=== PATIENT | female | born 1990 | race Caucasian/White ===

== ENCOUNTER 2016-07-23 16:00 | Emergency (ER) | payer OTHER ==
[2016-07-23 16:28] VITALS: BP 112/58; PULSE 79; RESP 20; TEMP 98.3
--- NOTE | 2016-07-23 16:42 | ED ---
General Adult HPI - General Chief complaint: Upper Respiratory Infection Stated complaint: SOB/Cough Time Seen by Provider: 07/23/16 16:32 Source: patient, RN notes reviewed Mode of arrival: ambulatory Limitations: no limitations - History of Present Illness Initial comments: This is a 26-year-old female presents with a cough 3-4 days. Patient states she's had an intermittent cough on and off for a month but the cough has been more persistent over the last few days. Patient states the cough is dry. Patient also admits to rhinorrhea and a headache. Patient denies any otalgia or sore throat. Patient denies any shortness breath, nausea/vomiting/diarrhea or abdominal pain. Patient denies any chance of being . Patient denies any recent fever, chills, chest pain, back pain, numbness, tingling, hematuria , or visual changes, or any other complaints. - Related Data Previous Rx's Medication Instructions Recorded Acetaminophen-Codeine 300-30mg 1 each PO Q6H PRN #20 tablet 07/02/14 [Tylenol #3] Penicillin V Potassium [Pen Vee K] 500 mg PO QID 10 Days 07/02/14 Azithromycin [Zithromax Z-pack] 250 mg PO DIRECTED #6 tab 07/23/16 Benzonatate [Tessalon Perles] 100 mg PO TID 3 Days 07/23/16 Allergies Allergy/AdvReac Type Severity Reaction Status Date / Time No Known Allergies Allergy Verified 07/23/16 16:29 Review of Systems ROS Statement: Those systems with pertinent positive or pertinent negative responses have been documented in the HPI. ROS Other: All systems not noted in ROS Statement are negative. Past Medical History Past Medical History: No Reported History History of Any Multi-Drug Resistant Organisms: None Reported Additional Past Surgical History / Comment(s): fatty tumor removed from back Past Psychological History: No Psychological Hx Reported Smoking Status: Current every day smoker Past Alcohol Use History: None Reported Past Drug Use History: None Reported General Exam - General Exam Comments Initial Comments: General: The patient is awake and alert, in no distress, and does not appear acutely ill. Eye: Pupils are equal, round and reactive to light, extra-ocular movements are intact. No nystagmus. There is normal conjunctiva bilaterally. No signs of icterus. Ears: TMs pink and pearly with intact cone of light bilaterally. Normal external ear canals Nose: Clear runny mucus bilaterally. Nasal turbinates pink and moist Mouth and throat: There are moist mucous membranes and no oral lesions. Neck: The neck is supple, there is no tenderness or JVD. Cardiovascular: There is a regular rate and rhythm. No murmur, rub or gallop is appreciated. Respiratory: Dry cough present on exam. Lungs are clear to auscultation, respirations are non-labored, breath sounds are equal. No wheezes, stridor, rales, or rhonchi. Musculoskeletal: Normal ROM, no tenderness. Strength 5/5. Sensation intact. Radial pulses equal bilaterally 2+. Neurological: A&O x 3. CN II-XII intact, There are no obvious motor or sensory deficits. Coordination appears grossly intact. Speech is normal. Skin: Skin is warm and dry and no rashes or lesions are noted. Psychiatric: Cooperative, appropriate mood & affect, normal judgment. Limitations: no limitations Course Vital Signs 07/23/16 16:26 Temperature 98.3 F Pulse Rate 79 Respiratory 20 Rate Blood Pressure 112/58 O2 Sat by Pulse 97 Oximetry Medical Decision Making - Medical Decision Making This is a 26-year-old female with a cough 3-4 days. On physical exam patient is afebrile in the EC. Dry cough present on exam. Lungs are clear to auscultation bilaterally. Patient is 97% on room air and respiratory rate is 20. Chest x-ray is done and reviewed showing: New suspicious right perihilar infiltrate. Report reviewed by Dr. Sharif. I discussed the results with patient. I discussed that patient will be started on azithromycin for pneumonia. I discussed Tessalon Perles to help the painful cough. Discussed Tylenol and Motrin for any pain and fever symptoms. I discussed return parameters. Discussed that the patient should drink plenty of fluids. Discussed that patient should follow up with PCP in one to 2 days or return to the EC for any worsening symptoms or for any further concerns. Patient was receptive to this plan and patient will be discharged home. Disposition Clinical Impression: Pneumonia Disposition: HOME SELF-CARE Condition: Good Instructions: Community Acquired Pneumonia (ED) Additional Instructions: Please finish entire course of azithromycin. Please use Tylenol and Motrin for any pain or fever symptoms. Please use Tessalon Perles as needed for cough. Please follow-up with your primary care physician tomorrow or return to the EC for any worsening symptoms or for any further concerns. Prescriptions: Azithromycin [Zithromax Z-pack] 250 mg PO DIRECTED #6 tab Benzonatate [Tessalon Perles] 100 mg PO TID 3 Days Referrals: Sahil Martinez MD [Primary Care Provider] - 1-2 days Time of Disposition: 17:36
--- NOTE | 2016-07-23 17:18 | XR ---
EXAMINATION TYPE: XR chest 2V DATE OF EXAM: 07/23/2016 4:53 PM COMPARISON: Prior chest x-ray November 21, 2013 HISTORY: Shortness of breath and cough for 3 days. TECHNIQUE: Frontal and lateral views of the chest are obtained. FINDINGS: There is new right perihilar airspace opacity. Left lung is clear. No pleural effusion or pneumothorax seen bilaterally. The cardiac silhouette size is within normal limits. The osseous st ructures are intact. IMPRESSION: New suspicious right perihilar infiltrate.
== END 2016-07-23 17:52 | disposition home or self-care (01) ==
LOC: EC 16:00
DX: J18.9 Pneumonia, unspecified organism (principal); F17.200 Nicotine dependence, unspecified, uncomplicated
CPT/HCPCS: 71020; 99283

== ENCOUNTER 2018-02-21 12:33 | Emergency (ER) | payer OTHER ==
[2018-02-21 12:40] VITALS: RESP 18
[2018-02-21] MEDS ORDERED: SODIUM CHLORIDE 0.9% 1,000 ML IV STA (12:48)
[2018-02-21 13:16] LABS: Basophils % (A) 1 %; Eosinophils # (A) 0.2 k/uL (0-0.7); Eosinophils % (A) 2 %; HCT 41.2 % (34.0-46.0); HGB 14.1 gm/dL (11.4-16.0); Lymphocytes # (A) 2.1 k/uL (1.0-4.8); Lymphocytes % (A) 30 %; MCH 30.1 pg (25.0-35.0); MCHC 34.2 g/dL (31.0-37.0); MCV 88.1 fL (80.0-100.0); Mean Platelet Volume 7.8; Monocytes # (A) 0.3 k/uL (0-1.0); Monocytes % (A) 5 %; Neutrophils # (A) 4.4 k/uL (1.3-7.7); Neutrophils % (A) 62 %; Platelet Count 171 k/uL (150-450); RBC 4.67 m/uL (3.80-5.40); RDW 12.7 % (11.5-15.5); WBC 7.1 k/uL (3.8-10.6)
--- NOTE | 2018-02-21 13:25 | ED ---
Chest Pain HPI - General Chief Complaint: Chest Pain Stated Complaint: lt arm numbness, chest pain Time Seen by Provider: 02/21/18 12:46 Source: patient, RN notes reviewed, old records reviewed Mode of arrival: wheelchair Limitations: no limitations - History of Present Illness Initial Comments: This is a 27-year-old female the ER for evaluation. She presents today for evaluation of chest pain chest pain left upper extremity tingling. Patient states she has history of heart block, occasional chest pain 2 weeks of chest pain to excessive paresthesias occurring for further evaluation today. No modifying factors for symptoms. No recent travel history sick contacts, no headache or trauma. No recent nausea vomiting or diarrhea, denies . No modifying factors for symptoms. MD Complaint: chest pain -: week(s) (2) Onset: during rest, during exertion, after eating Pain Location: left chest Pain Radiation: LUE Severity: mild Severity scale (1-10): 2 (Currently no pain) Quality: aching, other (Tingling) Consistency: intermittent, now resolved Improves With: nothing Worsens With: nothing Treatments Prior to Arrival: none - Related Data Home Medications Medication Instructions Recorded Confirmed Aspirin EC [Ecotrin Low Dose] 81 mg PO DAILY 02/21/18 02/21/18 Allergies Allergy/AdvReac Type Severity Reaction Status Date / Time No Known Allergies Allergy Verified 02/21/18 13:07 Review of Systems ROS Statement: Those systems with pertinent positive or pertinent negative responses have been documented in the HPI. ROS Other: All systems not noted in ROS Statement are negative. EKG Findings - EKG Comments: EKG Findings:: EKG shows sinus rhythm rate of 66, TN 102, QRS 98, QTc 425 Past Medical History Past Medical History: No Reported History Additional Past Medical History / Comment(s): heart block History of Any Multi-Drug Resistant Organisms: None Reported Additional Past Surgical History / Comment(s): fatty tumor removed from back Past Psychological History: No Psychological Hx Reported Smoking Status: Current every day smoker Past Alcohol Use History: None Reported Past Drug Use History: None Reported General Exam - General Exam Comments Initial Comments: NIH of 0 Limitations: no limitations General appearance: alert, in no apparent distress Head exam: Present: atraumatic, normocephalic, normal inspection Eye exam: Present: normal appearance, PERRL, EOMI. Absent: scleral icterus, conjunctival injection, periorbital swelling ENT exam: Present: normal exam, mucous membranes moist Neck exam: Present: normal inspection. Absent: tenderness, meningismus, lymphadenopathy Respiratory exam: Present: normal lung sounds bilaterally. Absent: respiratory distress, wheezes, rales, rhonchi, stridor Cardiovascular Exam: Present: regular rate, normal rhythm, normal heart sounds. Absent: systolic murmur, diastolic murmur, rubs, gallop, clicks GI/Abdominal exam: Present: soft, normal bowel sounds. Absent: distended, tenderness, guarding, rebound, rigid Extremities exam: Present: normal inspection, full ROM, normal capillary refill. Absent: tenderness, pedal edema, joint swelling, calf tenderness Back exam: Present: normal inspection Neurological exam: Present: alert, oriented X3, CN II-XII intact Psychiatric exam: Present: normal affect, normal mood Skin exam: Present: warm, dry, intact, normal color. Absent: rash Course Vital Signs 02/21/18 12:38 Temperature 98.3 F Pulse Rate 79 Respiratory 18 Rate Blood Pressure 118/78 O2 Sat by Pulse 100 Oximetry - Reevaluation(s) Reevaluation #1: 02/21/18 13:58 Medical record is reviewed Reevaluation #2: 02/21/18 13:58 Patient reexamined, chest pain is nonexistent currently. No neurological deficit found Reevaluation #3: 02/21/18 15:58 Studies CTA chest negative for acute disease Chest Pain MDM - MDM 27 female with nonspecific chest pain paresthesias. Patient can be discharged home with normal CT labwork Disposition Clinical Impression: Chest pain Disposition: HOME SELF-CARE Condition: Good Instructions: Chest Pain (ED) Is patient prescribed a controlled substance at d/c from ED?: No Referrals: Sahil Martinez MD [Primary Care Provider] - 1-2 days
[2018-02-21 13:28] LABS: ALT 25 U/L (9-52); AST 23 U/L (14-36); Albumin 4.3 g/dL (3.5-5.0); Alkaline Phosphatase 41 U/L (38-126); Anion Gap 6 mmol/L; Blood Urea Nitrogen 15 mg/dL (7-17); Calcium 9.1 mg/dL (8.4-10.2); Carbon Dioxide 26 mmol/L (22-30); Chloride 106 mmol/L (98-107); Glucose 85 mg/dL (74-99); Lipase 32 U/L (23-300); Potassium 3.9 mmol/L (3.5-5.1); Sodium 138 mmol/L (137-145); Total Bilirubin 0.6 mg/dL (0.2-1.3); Total Protein 7.2 g/dL (6.3-8.2)
[2018-02-21 13:31] LABS: D-Dimer 0.41 mg/L FEU (<0.60); Partial Thromboplastin Time 25.8 sec (22.0-30.0); Prothrombin Time 10.1 sec (9.0-12.0)
[2018-02-21 13:51] LABS: Creatine Kinase 85 U/L (30-135)
[2018-02-21 14:04] LABS: Creatine Kinase MB 0.9 ng/mL (0.0-2.4); Troponin I <0.012 ng/mL (0.000-0.034)
--- NOTE | 2018-02-21 15:25 | CT ---
EXAMINATION TYPE: CT angio chest DATE OF EXAM: 02/21/2018 COMPARISON: 01/07/2010 HISTORY: Shortness of breath and Arm pain CT DLP: 216 mGycm. Automated Exposure Control for Dose Reduction was Utilized. CONTRAST: CTA scan of the thorax is performed with IV Contrast, patient injected with 100 mL of Isovue 370, pul monary embolism protocol. MIP Images are created on CT scanner and reviewed. FINDINGS: LUNGS: The lungs are grossly clear, there is no concerning parenchymal mass or nodule identified. T here is no pleural effusion or pneumothorax seen. The tracheobronchial tree is patent. MEDIASTINUM: There is satisfactory enhancement of the pulmonary artery and its branches, there is no CT evidence for pulmonary embolism. There are no greater than 1 cm hilar or mediastinal lymph nodes. No cardiomegaly or pericardial effusion is seen. OTHER: Triangular-shaped probable residual thymic tissue seen within the superior mediastinum. Ill-de fined soft tissue density is also present within the aorticopulmonary window and right hilum likely r elated to prominent lymph nodes. IMPRESSION: 1. No evidence of pulmonary embolism. 2. No acute pulmonary pathology. No focal consolidation, pleural effusion or pneumothorax. 3. Prominent mediastinal lymph nodes in the aorticopulmonary window and right hilum. Short-term follo w-up could ensure stability.
[2018-02-21 16:14] VITALS: BP 120/82; PULSE 74; TEMP 97.8
== END 2018-02-21 16:24 | disposition home or self-care (01) ==
LOC: EC 12:33
DX: R07.9 Chest pain, unspecified (principal); R20.2 Paresthesia of skin; F17.200 Nicotine dependence, unspecified, uncomplicated; Z86.79 Personal history of other diseases of the circulatory system; Z79.82 Long term (current) use of aspirin
CPT/HCPCS: 36415; 93005; 85379; 83880; 80053; 82550; 82553; 83690; 83735; 84484; 85025; 85610; 85730; 81025; 71275; 99285; Q9967

== ENCOUNTER → 2018-03-01 | Outpatient (CLI) | payer OTHER ==
--- NOTE | 2018-03-02 16:53 | ECHOS ---
STRESS ECHOCARDIOGRAM INDICATIONS: Chest pain. MEDICATIONS: Aspirin. BASELINE HEART RATE: 60 BASELINE BLOOD PRESSURE: 142/68 MAXIMUM HEART RATE: 172 MAXIMUM BLOOD PRESSURE: 162/67 85% MPHR: 165 100% MPHR: 194 METS: 11.7 MAXIMUM STAGE REACHED: 4 TOTAL EXERCISE TIME: 10:00 CLINICAL INFORMATION: Baseline 12-lead ECG shows normal sinus rhythm with normal cardiac intervals. Patient exercised on a Jovanni protocol for 10 minutes, achieving a peak heart rate of 172 beats per minute. There was no ECG evidence for ischemia. No arrhythmias were noted. Normal blood pressure response to exercise. Baseline 2D echo images showed normal LV size and systolic function without segmental wall motion abnormalities. At peak exercise, there was excellent augmentation of overall LV contractility without development of any wall motion abnormalities. At recovery, regional and global LV systolic function remained normal. IMPRESSION: No ECG or echocardiographic evidence for ischemia. MMODL / IJN: [id number] /
== END ==
LOC: RADNMMAIN 08:25
PROVIDERS: ATTEND Internal Medicine
DX: R00.2 Palpitations (principal)
CPT/HCPCS: 93351

== ENCOUNTER 2018-11-28 08:56 | Emergency (ER) | payer OTHER ==
[2018-11-28] MEDS ORDERED: SODIUM CHLORIDE 0.9% 1,000 ML IV STA (09:19)
[2018-11-28] MEDS ORDERED: METOCLOPRAMIDE 5 MG/ML 2 ML VIAL IVP STA (09:19)
[2018-11-28] MEDS ORDERED: LORazepam 1 MG TAB PO STA (09:19)
--- NOTE | 2018-11-28 09:22 | ED ---
Chest Pain HPI - General Chief Complaint: Chest Pain Stated Complaint: Chest pain, nausea Time Seen by Provider: 11/28/18 09:01 Source: patient, RN notes reviewed, old records reviewed Mode of arrival: ambulatory Limitations: no limitations - History of Present Illness Initial Comments: This Patient was 28-year-old female who presents emergency department today with 3 days of intermittent palpitation-like symptoms and complains of nausea. Patient reports that she was seen yesterday at [facility]. She was discharged with a diagnosis of dehydration after fluids and otherwise felt well. She reports that she started having symptoms again today. She does question if it could be related to anxiety. She is on a patch for contr ol, former smoker. Patient states that she does occasionally smoke marijuana to help with anxiety. Patient states that she has some nausea but no vomiting or significant abdominal pain. She denies any significant shortness of breath or coughing or upper respiratory symptoms. - Related Data Home Medications Medication Instructions Recorded Confirmed Aspirin EC [Ecotrin Low Dose] 81 mg PO DAILY 02/21/18 02/21/18 Allergies Allergy/AdvReac Type Severity Reaction Status Date / Time No Known Allergies Allergy Verified 11/28/18 09:00 Review of Systems ROS Statement: Those systems with pertinent positive or pertinent negative responses have been documented in the HPI. ROS Other: All systems not noted in ROS Statement are negative. EKG Findings - EKG Comments: EKG Findings:: EKG performed at 950 shows sinus rhythm with sinus arrhythmia with short MO. Otherwise normal EKG. Ventricular rate of 61 bpm. MO interval 104 ms. QS duration is 100 ms. QT QTc is 416/418 ms. Past Medical History Past Medical History: No Reported History Additional Past Medical History / Comment(s): heart block History of Any Multi-Drug Resistant Organisms: None Reported Additional Past Surgical History / Comment(s): fatty tumor removed from back Past Psychological History: No Psychological Hx Reported Smoking Status: Current every day smoker Past Alcohol Use History: None Reported Past Drug Use History: None Reported General Exam - General Exam Comments Initial Comments: This is a 28-year-old female. Patient appears somewhat anxious. Limitations: no limitations General appearance: alert, in no apparent distress Head exam: Present: atraumatic, normocephalic, normal inspection Eye exam: Present: normal appearance, PERRL, EOMI. Absent: scleral icterus, conjunctival injection, periorbital swelling ENT exam: Present: normal exam, normal oropharynx Neck exam: Present: normal inspection. Absent: tenderness, meningismus, lymphadenopathy Respiratory exam: Present: normal lung sounds bilaterally. Absent: respiratory distress, wheezes, rales, rhonchi, stridor Cardiovascular Exam: Present: regular rate, normal rhythm, normal heart sounds. Absent: systolic murmur, diastolic murmur, rubs, gallop, clicks GI/Abdominal exam: Present: soft, normal bowel sounds. Absent: distended, tende rness, guarding, rebound, rigid Course Vital Signs 11/28/18 11/28/18 11/28/18 08:57 09:09 10:09 Temperature 98.2 F Pulse Rate 79 78 Respiratory 22 22 16 Rate Blood Pressure 138/79 126/85 O2 Sat by Pulse 100 100 Oximetry Chest Pain MDM - MDM 28-year-old female presents emergency Department today with complaints of palpitations, nausea. She appears anxious on exam. Cardiac enzymes and an EKG are unremarkable. Patient's lab work was otherwise unremarkable. She is po sitive for marijuana she does report she smokes is due to anxiety. On reevaluation after receiving Ativan arrival when she does so much better. Discussed since likely related to anxiety. [facility] and also lab work and ER visit was reviewed as well shows no acute changes. Patient will be discharged at this time with follow-up with PCP. Also discussed following up with her dietary clerk. Disposition Clinical Impression: Anxiety, History of palpitations Disposition: HOME SELF-CARE Condition: Good Instructions (If sedation given, give patient instructions): Generalized Anxiety Disorder (ED), Heart Palpitations (ED) Additional Instructions: Patient advised to drink plenty of fluids. Have close follow up with your primary care physician and cardiology. Return to the emergency department if any alarming signs or symptoms occur. Is patient prescribed a controlled substance at d/c from ED?: No Referrals: Sahil Martinez MD [Primary Care Provider] - 1-2 days
[2018-11-28 09:52] LABS: Basophils % (A) 0 %; Eosinophils # (A) 0.1 k/uL (0-0.7); Eosinophils % (A) 2 %; HCT 43.5 % (34.0-46.0); HGB 14.9 gm/dL (11.4-16.0); Lymphocytes # (A) 1.2 k/uL (1.0-4.8); Lymphocytes % (A) 23 %; MCH 29.6 pg (25.0-35.0); MCHC 34.2 g/dL (31.0-37.0); MCV 86.5 fL (80.0-100.0); Mean Platelet Volume 7.4; Monocytes # (A) 0.2 k/uL (0-1.0); Monocytes % (A) 4 %; Neutrophils # (A) 3.7 k/uL (1.3-7.7); Neutrophils % (A) 69 %; Platelet Count 167 k/uL (150-450); RBC 5.03 m/uL (3.80-5.40); RDW 12.8 % (11.5-15.5); WBC 5.3 k/uL (3.8-10.6)
[2018-11-28 10:02] LABS: ALT 12 U/L (9-52); AST 19 U/L (14-36); African American GFR (CKD) >90 (>60 ml/min/1.73 sqM); Albumin 4.4 g/dL (3.5-5.0); Alkaline Phosphatase 46 U/L (38-126); Anion Gap 11 mmol/L; Blood Urea Nitrogen 8 mg/dL (7-17); Calcium 9.5 mg/dL (8.4-10.2); Carbon Dioxide 20 mmol/L (22-30); Chloride 112 mmol/L (98-107); Glucose 119 mg/dL (74-99); Sodium 143 mmol/L (137-145); Total Bilirubin 0.5 mg/dL (0.2-1.3); Total Protein 7.2 g/dL (6.3-8.2)
--- NOTE | 2018-11-28 10:06 | XR ---
EXAMINATION TYPE: XR chest 2V DATE OF EXAM: 11/28/2018 COMPARISON: 07/23/2016 HISTORY: Palpitations with history of heart block TECHNIQUE: Frontal and lateral views of the chest are obtained. FINDINGS: There is no focal air space opacity, pleural effusion, or pneumothorax seen. The cardiac silhouette size is within normal limits. The osseous structures are intact. IMPRESSION: No acute cardiopulmonary process.
[2018-11-28 10:10] LABS: INR 0.9 (<1.2)
[2018-11-28 10:11] VITALS: RESP 16
[2018-11-28 10:17] LABS: Appearance,Urine Clear (Clear); Bilirubin,Urine Negative (Negative); Blood,Urine Negative (Negative); Color,Urine Colorless; Glucose,Urine (UA) Negative (Negative); Ketones,Urine Negative (Negative); Leukocyte Esterase,Urine Negative (Negative); Nitrite,Urine Negative (Negative); Protein,Urine Negative (Negative); Specific Gravity,Urine 1.002 (1.001-1.035); Urobilinogen,Urine <2.0 mg/dL (<2.0)
[2018-11-28 10:28] LABS: Amphetamine Screen,Urine Not Detected (NotDetected); Barbiturate Screen,Urine Not Detected (NotDetected); Benzodiazepines Screen,Urine Not Detected (NotDetected); Cocaine Screen,Urine Not Detected (NotDetected); Methadone Screen, Urine Not Detected (NotDetected); Opiate Screen,Urine Not Detected (NotDetected); Oxycodone Screen, Urine Not Detected (NotDetected); Phencyclidine Screen,Urine Not Detected (NotDetected); Tricyclic Antidepressant,Urine Not Detected (NotDetected); Urn Cannabinoid Scrn Detected (NotDetected)
[2018-11-28 11:27] VITALS: BP 110/62; PULSE 62; TEMP 97.9
== END 2018-11-28 11:25 | disposition home or self-care (01) ==
LOC: EC 08:56
DX: F41.9 Anxiety disorder, unspecified (principal); R00.2 Palpitations; R11.0 Nausea; R07.9 Chest pain, unspecified; F12.90 Cannabis use, unspecified, uncomplicated; F17.200 Nicotine dependence, unspecified, uncomplicated; Z79.82 Long term (current) use of aspirin
CPT/HCPCS: 36415; 93005; 80053; 83735; 84484; 85025; 85610; 85730; 81003; 81025; 80306; 71046; 99285; 96374; 96361; J2765

== ENCOUNTER 2019-01-19 09:35 | Emergency (ER) | payer OTHER ==
[2019-01-19 09:42] VITALS: RESP 18; TEMP 98.1
[2019-01-19] MEDS ORDERED: Rhogam IMMUNE GLOBULIN 1,500 UNIT/1 ML IM ONE (10:13)
--- NOTE | 2019-01-19 10:20 | ED ---
Female Urogenital HPI - General Chief complaint: Vaginal Bleeding Stated complaint: preg, bleeding Time Seen by Provider: 01/19/19 09:43 Source: patient Mode of arrival: wheelchair Limitations: no limitations - History of Present Illness Initial comments: Patient is a 28-year-old female G3 Patient female, who presents for in terms today with vaginal bleeding starting today. She reports that she found she was on Sunday. Started to have some lower abdominal pain and cramping yesterday on Sunday. She reports pain is on LLQ. She states that her CORD SPLICER is Dr. corrales. Patient reports that she's had no fevers or chills, nausea or vomiting. She states that the bleeding has been more heavy over the past few hours. She reports she came here from work. States that she does have a negative blood type and received RhoGAM on her last . - Related Data Home Medications Medication Instructions Recorded Confirmed Aspirin EC [Ecotrin Low Dose] 81 mg PO DAILY 02/21/18 02/21/18 Allergies Allergy/AdvReac Type Severity Reaction Status Date / Time No Known Allergies Allergy Verified 01/19/19 09:40 Review of Systems ROS Statement: Those systems with pertinent positive or pertinent negative responses have been documented in the HPI. ROS Other: All systems not noted in ROS Statement are negative. Past Medical History Past Medical History: No Reported History Additional Past Medical History / Comment(s): heart block History of Any Multi-Drug Resistant Organisms: None Reported Additional Past Surgical History / Comment(s): fatty tumor removed from back Past Psychological History: No Psychological Hx Reported Smoking Status: Current every day smoker Past Alcohol Use History: None Reported Past Drug Use History: None Reported General Exam - General Exam Comments Initial Comments: 28-year-old female. Alert and oriented. No significant distress. Limitations: no limitations General appearance: alert, in no apparent distress Head exam: Present: atraumatic, normocephalic, normal inspection Eye exam: Present: normal appearance, PERRL, EOMI. Absent: scleral icterus, conjunctival injection, periorbital swelling ENT exam: Present: normal exam, mucous membranes moist Neck exam: Present: normal inspection. Absent: tenderness, meningismus, lymphadenopathy Respiratory exam: Present: normal lung sounds bilaterally. Absent: respiratory distress, rales, rhonchi, stridor Cardiovascular Exam: Present: regular rate, normal rhythm, normal heart sounds. Absent: systolic murmur, diastolic murmur, rubs, gallop, clicks GI/Abdominal exam: Present: soft, normal bowel sounds. Absent: distended, tenderness, guarding, rebound, rigid External exam: Present: normal external exam Speculum exam: Present: vaginal bleeding (Cervical os appeared closed, there is evidence of bright red blood in vaginal vault. No significant clotting noted.). Absent: normal speculum exam By manual exam: Present: adnexal tenderness (Patient had left adnexal tenderness.). Absent: normal by manual exam, cervical motion tenderness Extremities exam: Present: normal inspection, full ROM, normal capillary refill. Absent: tenderness, pedal edema, joint swelling, calf tenderness Back exam: Present: normal inspection Neurological exam: Present: alert, oriented X3, CN II-XII intact Psychiatric exam: Present: normal affect, normal mood Skin exam: Present: warm, dry, intact, normal color. Absent: rash Course Vital Signs 01/19/19 01/19/19 09:40 12:53 Temperature 98.1 F Pulse Rate 62 75 Respiratory 18 18 Rate Blood Pressure 125/85 113/75 O2 Sat by Pulse 100 98 Oximetry - Reevaluation(s) Reevaluation #1: 01/19/19 13:[address] Desai who recommends the Patient follow up tomorrow morning at [address] Corrales. Medical Decision Making - Medical Decision Making 28 year old female presents with LLQ pain and vaginal bleeding. She recently found out that she is , and has bleeding for one day. She has left adnexal tenderness on exam. HCG is 301. US cannot exclude ectopic , but no identifiable IUP. Rh is negatieve and she was given Rhogam. Patient was informed this could be early ectopic , and discussed case with Dr. Joel. He suggests patient have appt with Dr. Corrales at 9am tomorrow. Patient is agreeable to this treatment plan.Discussed strict return parameters. - Lab Data Result diagrams: 01/19/19 11:10 01/19/19 11:10 Lab Results 01/19/19 01/19/19 01/19/19 Range/Units 10:00 10:15 11:10 WBC (3.8-10.6) k/uL RBC (3.80-5.40) m/uL Hgb (11.4-16.0) gm/dL Hct (34.0-46.0) % MCV (80.0-100.0) fL MCH (25.0-35.0) pg MCHC (31.0-37.0) g/dL RDW (11.5-15.5) % Plt Count (150-450) k/uL Neutrophils % % Lymphocytes % % Monocytes % % Eosinophils % % Basophils % % Neutrophils # (1.3-7.7) k/uL Lymphocytes # (1.0-4.8) k/uL Monocytes # (0-1.0) k/uL Eosinophils # (0-0.7) k/uL Basophils # (0-0.2) k/uL PT (9.0-12.0) sec INR (<1.2) APTT (22.0-30.0) sec Sodium (137-145) mmol/L Potassium (3.5-5.1) mmol/L Chloride (98-107) mmol/L Carbon Dioxide (22-30) mmol/L Anion Gap mmol/L BUN (7-17) mg/dL Creatinine (0.52-1.04) mg/dL Est GFR (CKD-EPI)AfAm (>60 ml/min/1.73 sqM) Est GFR (CKD-EPI)NonAf (>60 ml/min/1.73 sqM) Glucose (74-99) mg/dL Calcium (8.4-10.2) mg/dL HCG, Quant mIU/mL Urine Color Light Red Urine Appearance Cloudy H (Clear) Urine pH 7.0 (5.0-8.0) Ur Specific [place] 1.017 (1.001-1.035) Urine Protein 1+ H (Negative) Urine Glucose (UA) Negative (Negative) Urine Ketones Negative (Negative) Urine Blood Large H (Negative) Urine Nitrite Negative (Negative) Urine Bilirubin Negative (Negative) Urine Urobilinogen <2.0 (<2.0) mg/dL Ur Leukocyte Esterase Moderate H (Negative) Urine RBC 23 H (0-5) /hpf Urine WBC 12 H (0-5) /hpf Ur Squamous Epith Cells 11 H (0-4) /hpf Amorphous Sediment Rare H (None) /hpf Urine Bacteria Rare H (None) /hpf Urine Mucus Rare H (None) /hpf Trichomonas Ag (Rapid) Negative (Negative) Blood Type O Negative Blood Type Recheck O Neg Bld Type Recheck Status No Antibody Screen NEGATIVE Spec Expiration Date 01/22/2019 - 230901/19/19 01/19/19 01/19/19 Range/Units 11:10 11:10 11:10 WBC 8.8 (3.8-10.6) k/uL RBC 4.74 (3.80-5.40) m/uL Hgb 14.3 (11.4-16.0) gm/dL Hct 41.8 (34.0-46.0) % MCV 88.3 (80.0-100.0) fL MCH 30.2 (25.0-35.0) pg MCHC 34.2 (31.0-37.0) g/dL RDW 13.9 (11.5-15.5) % Plt Count 148 L (150-450) k/uL Neutrophils % 77 % Lymphocytes % 15 % Monocytes % 3 % Eosinophils % 3 % Basophils % 1 % Neutrophils # 6.8 (1.3-7.7) k/uL Lymphocytes # 1.3 (1.0-4.8) k/uL Monocytes # 0.3 (0-1.0) k/uL Eosinophils # 0.2 (0-0.7) k/uL Basophils # 0.1 (0-0.2) k/uL PT 10.3 (9.0-12.0) sec INR 1.0 (<1.2) APTT 27.0 (22.0-30.0) sec Sodium 139 (137-145) mmol/L Potassium 4.0 (3.5-5.1) mmol/L Chloride 110 H (98-107) mmol/L Carbon Dioxide 22 (22-30) mmol/L Anion Gap 7 mmol/L BUN 11 (7-17) mg/dL Creatinine 0.68 (0.52-1.04) mg/dL Est GFR (CKD-EPI)AfAm >90 (>60 ml/min/1.73 sqM) Est GFR (CKD-EPI)NonAf >90 (>60 ml/min/1.73 sqM) Glucose 98 (74-99) mg/dL Calcium 9.1 (8.4-10.2) mg/dL HCG, Quant 301.3 mIU/mL Urine Color Urine Appearance (Clear) Urine pH (5.0-8.0) Ur Specific [place] (1.001-1.035) Urine Protein (Negative) Urine Glucose (UA) (Negative) Urine Ketones (Negative) Urine Blood (Negative) Urine Nitrite (Negative) Urine Bilirubin (Negative) Urine Urobilinogen (<2.0) mg/dL Ur Leukocyte Esterase (Negative) Urine RBC (0-5) /hpf Urine WBC (0-5) /hpf Ur Squamous Epith Cells (0-4) /hpf Amorphous Sediment (None) /hpf Urine Bacteria (None) /hpf Urine Mucus (None) /hpf Trichomonas Ag (Rapid) (Negative) Blood Type Blood Type Recheck Bld Type Recheck Status Antibody Screen Spec Expiration Date - Radiology Data Radiology results: report reviewed We have not identified intrauterine or extrauterine gestation.Ectopic is not excluded. Short term follow up and serials beta hog suggested. left over has exophytic ovarian portion noted on TV US of 3.4 by 1.6 by 1.4cm. Disposition Clinical Impression: Threatened miscarriage, Left sided abdominal pain Disposition: HOME SELF-CARE Condition: Good Instructions (If sedation given, give patient instructions): Abdominal Pain in (ED) Additional Instructions: Advised to follow-up tomorrow morning with Dr. Corrales. Return to the emergency department if any alarming signs or symptoms occur. Is patient prescribed a controlled substance at d/c from ED?: No Referrals: Sahil Martinez MD [Primary Care Provider] - 1-2 days Time of Disposition: 13:30
[2019-01-19 11:34] LABS: Basophils # (A) 0.1 k/uL (0-0.2); Basophils % (A) 1 %; Eosinophils # (A) 0.2 k/uL (0-0.7); Eosinophils % (A) 3 %; HCT 41.8 % (34.0-46.0); HGB 14.3 gm/dL (11.4-16.0); Lymphocytes # (A) 1.3 k/uL (1.0-4.8); Lymphocytes % (A) 15 %; MCH 30.2 pg (25.0-35.0); MCHC 34.2 g/dL (31.0-37.0); MCV 88.3 fL (80.0-100.0); Mean Platelet Volume 7.7; Monocytes # (A) 0.3 k/uL (0-1.0); Monocytes % (A) 3 %; Neutrophils # (A) 6.8 k/uL (1.3-7.7); Neutrophils % (A) 77 %; Platelet Count 148 k/uL (150-450); RBC 4.74 m/uL (3.80-5.40); RDW 13.9 % (11.5-15.5); WBC 8.8 k/uL (3.8-10.6)
[2019-01-19 11:37] LABS: Amorphous Sediment,Urine Rare /hpf; Appearance,Urine Cloudy (Clear); Bacteria,Urine Rare /hpf; Bilirubin,Urine Negative (Negative); Blood,Urine Large (Negative); Color,Urine Light Red; Glucose,Urine (UA) Negative (Negative); Ketones,Urine Negative (Negative); Leukocyte Esterase,Urine Moderate (Negative); Mucus,Urine Rare /hpf; Nitrite,Urine Negative (Negative); Protein,Urine 1+ (Negative); RBC,Urine 23 /hpf (0-5); Specific Gravity,Urine 1.017 (1.001-1.035); Squamous Epithelial Cell,Urine 11 /hpf (0-4); Urobilinogen,Urine <2.0 mg/dL (<2.0); WBC,Urine 12 /hpf (0-5)
[2019-01-19 11:40] LABS: African American GFR (CKD) >90 (>60 ml/min/1.73 sqM); Anion Gap 7 mmol/L; Blood Urea Nitrogen 11 mg/dL (7-17); Calcium 9.1 mg/dL (8.4-10.2); Carbon Dioxide 22 mmol/L (22-30); Chloride 110 mmol/L (98-107); Glucose 98 mg/dL (74-99); Sodium 139 mmol/L (137-145)
[2019-01-19 11:49] LABS: Prothrombin Time 10.3 sec (9.0-12.0)
[2019-01-19 11:56] LABS: HCG,Quantitative Serum 301.3 mIU/mL
--- NOTE | 2019-01-19 12:46 | US ---
EXAMINATION TYPE: OB US DATE OF EXAM: 01/19/2019 12:07 PM COMPARISON: NONE CLINICAL HISTORY: L abd pain, bleeding early x 2 days. EXAM PERFORMED: Transvaginal (TV) and Transabdominal (TA) EXAM MEASUREMENTS: GESTATIONAL AGE / DATING Physician Established: Not yet established Dates by LMP: LMP unknown Dates by First Scan: No previous Dates by Current Scan: too early for machine's range MATERNAL ANATOMY Uterus: 9.9 x 4.9 x 4.4cm; possible cystic area = 0.4 x 0.3 x 0.6cm (decidual cyst?) noted adjacent to endometrium vs. on periphery of endometrium Right Ovary: 3.7 x 1.3 x 1.6cm Left Ovary: 4.3 x 2.3 x 2.4cm Post CDS / Adnexa: free fluid in cul de sac = 4.3 x 2.6 x 1.9cm on TA US Presence of corpus luteal cyst: in left ovary = 2.2 x 1.0 x 1.1cm GESTATION / SURVEY CRL: not seen MSD: possible gestational vs. decidual cyst vs. myometrial cyst Can not exclude very early ectopic in left ovary as exophytic ovarian portion is noted on T V US = 3.4 x 1.6 x 1.4cm. Date of LMP: unknown Beta HcG (if available): 301.3 IMPRESSION: 1. WE HAVE NOT IDENTIFIED INTRAUTERINE OR EXTRAUTERINE GESTATION. ECTOPIC IS NOT EXCLUDED. SHORT-TERM FOLLOW-UP +/- SERIAL BETA HCGS WOULD BE SUGGESTED.
[2019-01-19 12:54] VITALS: BP 113/75; PULSE 75
[2019-01-20 14:54] LABS: C. trachomatis,PCR Negative (Neg,Equiv); Chlamydia trachomatis Source Vagina; N. gonorrhoeae,PCR Negative (Neg,Equiv); Neisseria Source Vagina
== END 2019-01-19 13:47 | disposition home or self-care (01) ==
LOC: EC 09:35
DX: O20.0 Threatened abortion (principal); O99.419 Diseases of the circulatory system complicating pregnancy, unspecified trimester; I45.9 Conduction disorder, unspecified; O99.330 Smoking (tobacco) complicating pregnancy, unspecified trimester; F17.200 Nicotine dependence, unspecified, uncomplicated; Z79.82 Long term (current) use of aspirin; Z3A.00 Weeks of gestation of pregnancy not specified
CPT/HCPCS: 36415; 86900; 86901; 80048; 85025; 85610; 85730; 86850; 81001; 84702; 87808; 87491; 87591; 87070; 76801; 76817; 99284; 96372; J2791

== ENCOUNTER → 2019-01-21 | Outpatient (CLI) | payer OTHER | END | disposition home or self-care (01) | LOC: LABWHC1 11:33 | PROVIDERS: ATTEND Obstetrics & Gynecology | DX: Z34.80 Encounter for supervision of other normal pregnancy, unspecified trimester (principal) | CPT/HCPCS: 36415; 84702 ==

== ENCOUNTER → 2019-01-23 | Outpatient (CLI) | payer OTHER | END | disposition home or self-care (01) | LOC: LABWHC1 08:53 | PROVIDERS: ATTEND Obstetrics & Gynecology | DX: O03.9 Complete or unspecified spontaneous abortion without complication (principal) | CPT/HCPCS: 36415; 84702 ==

== ENCOUNTER 2020-08-31 06:06 | Inpatient (IN) | payer OTHER ==
[2020-08-31] MEDS ORDERED: LIDOCAINE 0.5% (PF) 5 MG/ML (50 ML SDV) SQ PRN (06:26)
[2020-08-31] MEDS ORDERED: CARBOPROST TROMETHAMINE 250 MCG/ML 1 ML AMP IM PRN (06:26)
[2020-08-31] MEDS ORDERED: AMPICILLIN 2,000 MG in SODIUM CHLORIDE 0.9% 100 ML IVPB STA (06:26)
[2020-08-31] MEDS ORDERED: METHYLERGONOVINE 0.2 MG/ML 1 ML AMP IM PRN (06:26)
[2020-08-31] MEDS ORDERED: TERBUTALINE 1 MG/ML VIAL SQ PRN (06:26)
[2020-08-31] MEDS ORDERED: OXYTOCIN 10 UNIT/ML 1 ML VIAL IM PRN (06:26)
[2020-08-31] MEDS ORDERED: OXYTOCIN 30 UNITS/500 ML NS 30 UNIT in SALINE 1 500ML.BAG IV SCH ×2 (06:30→13:15)
[2020-08-31] MEDS: LACTATED RINGERS 1,000 ML IV SCH ×2 (06:34→10:29)
[2020-08-31 07:12] LABS: Basophils # (A) 0.1 k/uL (0-0.2); Basophils % (A) 1 %; Eosinophils # (A) 0.1 k/uL (0-0.7); Eosinophils % (A) 1 %; HCT 35.3 % (34.0-46.0); HGB 11.4 gm/dL (11.4-16.0); Lymphocytes # (A) 1.4 k/uL (1.0-4.8); Lymphocytes % (A) 15 %; MCH 26.7 pg (25.0-35.0); MCHC 32.3 g/dL (31.0-37.0); MCV 82.5 fL (80.0-100.0); Mean Platelet Volume 9.1; Monocytes # (A) 0.4 k/uL (0-1.0); Monocytes % (A) 5 %; Neutrophils # (A) 7.4 k/uL (1.3-7.7); Neutrophils % (A) 78 %; Platelet Count 174 k/uL (150-450); Poikilocytosis Slight; RBC 4.28 m/uL (3.80-5.40); RDW 13.5 % (11.5-15.5); WBC 9.5 k/uL (3.8-10.6)
[2020-08-31] MEDS ORDERED: AMPICILLIN 1,000 MG in SODIUM CHLORIDE 0.9% 50 ML IVPB SCH (10:30)
[2020-08-31] MEDS ORDERED: SODIUM CHLORIDE 0.9% 100 ML BAG ONE (10:46)
[2020-08-31] MEDS ORDERED: fentaNYL (PF) 50 MCG/ML 5 ML AMP ONE (10:46)
[2020-08-31] MEDS ORDERED: ROPIVACAINE 5MG/ML 20ML VIAL ONE (10:46)
--- NOTE | 2020-08-31 12:05 | P.HPOB ---
History of Present Illness H&P Date: 08/31/20 Chief Complaint: induction of labor 30 year old presents at 39 weeks for induction of labor. Her cervix is 2/60/-2 and she is annabel irregularly. heart tones 135 with moderate variability and reactive. Review of Systems All systems: negative Constitutional: Denies chills, Denies fever Eyes: denies blurred vision, denies pain Ears, nose, mouth and throat: Denies headache, Denies sore throat Cardiovascular: Denies chest pain, Denies shortness of breath Respiratory: Denies cough Gastrointestinal: Denies abdominal pain, Denies diarrhea, Denies nausea, Denies vomiting Genitourinary: Denies dysuria, Denies hematuria Musculoskeletal: Denies myalgias Integumentary: Denies pruritus, Denies rash Neurological: Denies numbness, Denies weakness Psychiatric: Denies anxiety, Denies depression Endocrine: Denies fatigue, Denies weight change Past Medical History Past Medical History: No Reported History Additional Past Medical History / Comment(s): heart block History of Any Multi-Drug Resistant Organisms: None Reported Additional Past Surgical History / Comment(s): fatty tumor removed from back Past Anesthesia/Blood Transfusion Reactions: No Reported Reaction Past Psychological History: Anxiety, Depression Additional Psychological History / Comment(s): therapy Smoking Status: Current every day smoker Past Alcohol Use History: None Reported Additional Past Alcohol Use History / Comment(s): 1/2ppd Past Drug Use History: None Reported Medications and Allergies Allergies Allergy/AdvReac Type Severity Reaction Status Date / Time No Known Allergies Allergy Verified 08/31/20 06:26 Exam Osteopathic Statement: *. No significant issues noted on an osteopathic structural exam other than those noted in the History and Physical/Consult. Vital Signs Temp Pulse Resp BP Pulse Ox 08/31/20 06:35 96.8 F L 101 H 18 127/80 97 Intake and Output 08/30/20 08/31/20 08/31/20 22:59 06:59 14:59 Other: Weight 94.801 kg HEart: RRR Lungs: CTAB Abdomen: soft, nontender Extremeties: neg jose miguel's Results Result Diagrams: 08/31/20 06:30 Assessment and Plan (1) Elective induction of labor planned Current Visit: Yes Status: Acute Code(s): [id number] - SNOMED Code(s): 930918934 Plan: 1. induction of labor with amniotomy and pitocin 2. anticipate normal vaginal delivery
[2020-08-31] MEDS ORDERED: BENZOCAINE/MENTHOL SPRAY 1 GM/SPRAY AEROSOL TOPICAL PRN (13:13)
[2020-08-31] MEDS ORDERED: diphenhydrAMINE 50 MG/ML 1 ML VIAL IVP PRN ×2 (13:13)
[2020-08-31] MEDS ORDERED: SIMETHICONE 80 MG CHEWABLE PO PRN (13:13)
[2020-08-31] MEDS ORDERED: ZOLPIDEM 5 MG TAB PO PRN (13:13)
[2020-08-31] MEDS ORDERED: diphenhydrAMINE 25 MG CAP PO PRN (13:13)
[2020-08-31] MEDS ORDERED: ACETAMINOPHEN TAB 325 MG TAB PO PRN (13:13)
[2020-08-31] MEDS ORDERED: diphenhydrAMINE 50 MG CAP PO PRN (13:13)
[2020-08-31] MEDS ORDERED: LANOLIN CREAM 5 GM TUBE TOPICAL PRN (13:13)
[2020-08-31] MEDS ORDERED: HYDROCORTISONE 2.5% RECTAL CREAM 30 GM TUBE RECTAL PRN (13:13)
[2020-08-31] MEDS: IBUPROFEN 600 MG TAB PO PRN ×2 (15:37→21:49)
[2020-08-31] MEDS: SENNOSIDES-DOCUSATE SODIUM 1 EACH TAB PO SCH (21:49)
[2020-09-01 00:55] VITALS: TEMP 98.3
[2020-09-01 07:28] LABS: Basophils % (A) 0 %; Eosinophils # (A) 0.1 k/uL (0-0.7); Eosinophils % (A) 1 %; HCT 36.9 % (34.0-46.0); HGB 12.5 gm/dL (11.4-16.0); Lymphocytes # (A) 1.4 k/uL (1.0-4.8); Lymphocytes % (A) 12 %; MCH 27.9 pg (25.0-35.0); MCHC 33.9 g/dL (31.0-37.0); MCV 82.3 fL (80.0-100.0); Monocytes # (A) 0.5 k/uL (0-1.0); Monocytes % (A) 4 %; Neutrophils # (A) 9.7 k/uL (1.3-7.7); Neutrophils % (A) 82 %; Platelet Count 158 k/uL (150-450); RBC 4.48 m/uL (3.80-5.40); RDW 13.2 % (11.5-15.5); WBC 11.7 k/uL (3.8-10.6)
--- NOTE | 2020-09-01 07:57 | P.PROBDLV ---
Vaginal Delivery Note - . Vaginal Delivery Note: 30 year old presents at 39 weeks for induction of labor. Her cervix is 2/60/-2 and she is annabel irregularly. heart tones 135 with moderate variability and reactive. Pitocin was started. Amniotomy performed at 8:24 AM and clear fluid noted. She got an epidural when she was about 3 cm dilated. Her cervix was completely dilated by 12:55 PM. She pushed, and delivered a viable female infant over intact perineum under epidural anesthesia at 1302. He ad delivered OA, anterior shoulder delivered gentle downward guidance followed by posterior shoulder and rest of body. Nose and mouth bulb suctioned, cord clamped and cut, placed mother's abdomen. Apgars 8, 8, weight 7 lbs. 13 oz. Placenta delivered spontaneously, intact with three-vessel cord at 1306. Vagina, cervix, and perineum were inspected. Bilateral labial lacerations were repaired with 3-0 Vicryl. Estimated blood loss 200 mL. Mother and baby in stable condition.
--- NOTE | 2020-09-01 07:59 | P.DS ---
Providers Date of admission: 08/31/20 06:06 Expected date of discharge: 09/01/20 Attending physician: Letty Corrales Primary care physician: Stated None - Discharge Diagnosis(es) (1) Elective induction of labor planned Current Visit: Yes Status: Resolved (2) Normal vaginal delivery Current Visit: Yes Status: Acute Hospital Course: Patient presented for induction of labor. She underwent a normal vaginal delivery after Pitocin and amniotomy. Post course was uncomplicated. He r lochia is decreasing, denies nausea, vomiting, chest pain, shortness of breath or any calf pain. She'll be discharged home day #1 in stable condition to follow-up with me in 6 weeks. Plan - Discharge Summary New Discharge Prescriptions: New Ibuprofen [Motrin] 600 mg PO Q6H PRN #30 tab PRN Reason: Pain Discharge Medication List Ibuprofen [Motrin] 600 mg PO Q6H PRN #30 tab 09/01/20 [Rx] Follow up Appointment(s)/Referral(s): Letty Corrales DO [Doctor of Osteopathic Medicine] - 6 Weeks Discharge Disposition: HOME SELF-CARE
[2020-09-01] MEDS: SENNOSIDES-DOCUSATE SODIUM 1 EACH TAB PO SCH (09:50)
[2020-09-01 10:04] VITALS: BP 133/75; PULSE 77; RESP 20
[2020-09-01] MEDS: IBUPROFEN 600 MG TAB PO PRN (11:43)
== END 2020-09-01 15:30 | disposition home or self-care (01) | DRG 807 ==
LOC: 4FBP 06:06
PROVIDERS: ADMIT Obstetrics & Gynecology; ATTEND Obstetrics & Gynecology
PROC: 10E0XZZ Delivery of Products of Conception, External Approach (ICD-10-PCS; principal; 2020-08-31)
PROC: 0HQ9XZZ Repair Perineum Skin, External Approach (ICD-10-PCS; 2020-08-31)
PROC: 3E033VJ Introduction of Other Hormone into Peripheral Vein, Percutaneous Approach (ICD-10-PCS; 2020-08-31)
PROC: 10907ZC Drainage of Amniotic Fluid, Therapeutic from Products of Conception, Via Natural or Artificial Opening (ICD-10-PCS; 2020-08-31)
PROC: 00HU33Z Insertion of Infusion Device into Spinal Canal, Percutaneous Approach (ICD-10-PCS; 2020-08-31)
PROC: 3E0R3BZ Introduction of Anesthetic Agent into Spinal Canal, Percutaneous Approach (ICD-10-PCS; 2020-08-31)
DX: O70.0 First degree perineal laceration during delivery (principal); Z37.0 Single live birth; O99.334 Smoking (tobacco) complicating childbirth; F17.200 Nicotine dependence, unspecified, uncomplicated; Z3A.39 39 weeks gestation of pregnancy; Z86.79 Personal history of other diseases of the circulatory system; Z87.2 Personal history of diseases of the skin and subcutaneous tissue; Z86.59 Personal history of other mental and behavioral disorders; Z98.890 Other specified postprocedural states
CPT/HCPCS: 85025; 86850; 86900; 86901

== ENCOUNTER 2020-12-02 07:03 | Day surgery (SDC) | payer OTHER ==
[2020-11-30 12:07] VITALS: BMI 26.2
[~2020-12-02 07:03] MED LIST: DEXAMETHASONE SOD PHOSPHATE 4 MG/ML 1 ML VIAL IV ONE; HYDROmorphone 0.5 MG/0.5 ML SYRINGE IVP PRN; LACTATED RINGERS 1,000 ML IV SCH; ONDANSETRON 4 MG/2 ML VIAL IVP ONE; Pre Op ABX Message 1 EACH MISC MISCELLANE ONE
--- NOTE | 2020-12-02 07:22 | P.HPOB ---
History of Present Illness H&P Date: 12/02/20 Chief Complaint: family planning 30 year old presents for laparoscopic tubal ligation. Review of Systems All systems: negative Constitutional: Denies chills, Denies fever Eyes: denies blurred vision, denies pain Ears, nose, mouth and throat: Denies headache, Denies sore throat Cardiovascular: Denies chest pain, Denies shortness of breath Respiratory: Denies cough Gastrointestinal: Denies abdominal pain, Denies diarrhea, Denies nausea, Denies vomiting Genitourinary: Denies dysuria, Denies hematuria Musculoskeletal: Denies myalgias Integumentary: Denies pruritus, Denies rash Neurological: Denies numbness, Denies weakness Psychiatric: Denies anxiety, Denies depression Endocrine: Denies fatigue, Denies weight change Past Medical History Past Medical History: No Reported History Additional Past Medical History / Comment(s): hx heart block History of Any Multi-Drug Resistant Organisms: None Reported Additional Past Surgical History / Comment(s): fatty tumor removed from back, oral sx Past Anesthesia/Blood Transfusion Reactions: Previous Problems w/ Anesthesia, Postoperative Nausea & Vomiting (PONV) Additional Past Anesthesia/Blood Transfusion Reaction / Comment(s): wakes up dizzy, Smoking Status: Current every day smoker Medications and Allergies Home Medications Medication Instructions Recorded Confirmed Type No Known Home Medications 11/30/20 11/30/20 History Allergies Allergy/AdvReac Type Severity Reaction Status Date / Time No Known Allergies Allergy Verified 11/30/20 12:03 Exam Osteopathic Statement: *. No significant issues noted on an osteopathic structural exam other than those noted in the History and Physical/Consult. Heart: RRR Lungs: CTAB Abdomen: soft, nontender Extremeties: neg jose miguel's Assessment and Plan (1) Family planning Current Visit: Yes Status: Acute Code(s): Z30.09 - ENCOUNTER FOR OTH GENERAL CNSL AND ADVICE ON CONTRACEPTION SNOMED Code(s): 882969043 Plan: 1. laparoscopic tubal ligation
[2020-12-02] MEDS ORDERED: SCOPOLAMINE 1.5MG/72HR PATCH TRANSDERM ONE (07:50)
--- NOTE | 2020-12-02 08:23 | P.OP ---
Date of Procedure: 12/02/20 Preoperative Diagnosis: 1. family planning Postoperative Diagnosis: 1. family planning Procedure(s) Performed: laparoscopic tubal ligation Anesthesia: MUNDO Surgeon: Letty Corrales Estimated Blood Loss (ml): 5 IV fluids (ml): 200 Urine output (ml): 150 Pathology: none sent Condition: stable Disposition: PACU Description of Procedure: Patient was taken to the operating room where general anesthesia was obtained without difficulty. She was prepped and draped in normal sterile fashion in the dorsal lithotomy position, legs placed in the Narendra stirrups. Bladder drained of all urine. Hunt speculum placed in the vagina and the anterior lip the cervix was grasped with single-tooth tenaculum. The uterus is sounded to 9 cm and the kroner manipulator was placed. Attention was then turned to the abdomen and gloves were changed. A 10 mm infraumbilical incision was made the scalpel and 10 mm optical trocar was placed under direct visualization. A 5 mm suprapubic Incision was made and a 5 mm optical trocar was placed under direct visualization. Survey of the pelvis revealed normal uterus tubes and ovaries. The left fallopian tube was grasped with a Kleppinger and fulgurated 2-3 cm on this side in the ampullar portion. The right fallopian tube was grasped with a Kleppinger and fulgurated 2-3 cm in the ampullar portion. All instruments were then removed from the abdomen and vagina. The 10 mm infraumbilical incision was closed with 0 Vicryl and the fascial layer and then 4-0 Vicryl in a subcuticular fashion. The 5 mm incision was closed with 4-0 Vicryl in a subcuticular fashion. Patient tolerated procedure well, sponge and instrument counts correct 2 and she was taken to recovery room in stable condition.
[2020-12-02] MEDS ORDERED: ROCURONIUM 10 MG/ML (5 ML VIAL) IV ONE (08:28)
[2020-12-02] MEDS ORDERED: SUCCINYLCHOLINE CHLORIDE 100 MG/5 ML SYR IV ONE (08:28)
[2020-12-02] MEDS ORDERED: KETOROLAC 15 MG/ML 1 ML VIAL ONE (08:28)
[2020-12-02] MEDS ORDERED: NEOSTIGMINE 1 MG/ML 10 ML VIAL ONE (08:28)
[2020-12-02] MEDS ORDERED: MIDAZOLAM 2 MG/2 ML VIAL ONE (08:28)
[2020-12-02] MEDS ORDERED: LIDOCAINE 1% INJ 10MG/ML (20 ML MDV) ONE (08:28)
[2020-12-02] MEDS ORDERED: PROPOFOL 10 MG/ML 20 ML VIAL IV ONE (08:28)
[2020-12-02] MEDS ORDERED: fentaNYL (PF) 50 MCG/ML 2 ML AMP ONE (08:28)
[2020-12-02] MEDS ORDERED: GLYCOPYRROLATE 0.2 MG/ML 2 ML VIAL ONE (08:28)
[2020-12-02] MEDS ORDERED: BUPIVACAINE (PF) 0.25% 30 ML VIAL SQ ONE (08:57)
[2020-12-02 09:14] VITALS: TEMP 97.3
[2020-12-02 10:27] VITALS: RESP 16
[2020-12-02] MEDS ORDERED: ONDANSETRON 4 MG/2 ML VIAL ONE (10:28)
[2020-12-02] MEDS ORDERED: ONDANSETRON 4 MG/2 ML VIAL IVP ONE (10:30)
[2020-12-02 12:03] VITALS: BP 129/82; PULSE 55
== END 2020-12-02 12:11 | disposition home or self-care (01) ==
LOC: OR 07:03
PROVIDERS: ATTEND Obstetrics & Gynecology
DX: Z30.2 Encounter for sterilization (principal); F17.200 Nicotine dependence, unspecified, uncomplicated
CPT/HCPCS: 58670; 81025; J2250; J1100; J2710; J2405; J2001; J3010; J1885; J0330; J2704; J1170; J1790

== ENCOUNTER 2023-10-08 05:03 | Emergency (ER) | payer OTHER ==
--- NOTE | 2023-10-08 05:45 | ED ---
General Adult HPI - General Chief complaint: Extremity Injury, Lower Stated complaint: Lft toe pain Time Seen by Provider: 10/08/23 05:14 Source: patient, RN notes reviewed, old records reviewed Mode of arrival: wheelchair Limitations: no limitations - History of Present Illness Initial comments: 33-year-old female presenting for evaluation of left fifth toe injury. Patient states while getting out of bed she kicked a shoe and felt instant pain and a crunching sensation to the toe. She has had pain at the site of injury no other injury reported. - Related Data Previous Rx's Medication Instructions Recorded Sulfamethox-Tmp 800-160Mg [Bactrim 1 tab PO Q12HR 7 Days #14 tab 12/27/21 DS 800-160 mg] Allergies Allergy/AdvReac Type Severity Reaction Status Date / Time No Known Allergies Allergy Verified 10/08/23 05:09 Review of Systems ROS Statement: Those systems with pertinent positive or pertinent negative responses have been documented in the HPI. ROS Other: All systems not noted in ROS Statement are negative. Past Medical History Past Medical History: No Reported History Additional Past Medical History / Comment(s): hx heart block History of Any Multi-Drug Resistant Organisms: None Reported Additional Past Surgical History / Comment(s): fatty tumor removed from back, oral sx Past Anesthesia/Blood Transfusion Reactions: Previous Problems w/ Anesthesia, Postoperative Nausea & Vomiting (PONV) Additional Past Anesthesia/Blood Transfusion Reaction / Comment(s): wakes up dizzy, Past Psychological History: Anxiety, Depression Smoking Status: Current every day smoker Past Alcohol Use History: None Reported Past Drug Use History: Marijuana General Exam Limitations: no limitations General appearance: alert, in no apparent distress Head exam: Present: atraumatic, normocephalic Eye exam: Present: normal appearance, PERRL ENT exam: Present: normal exam Neck exam: Present: normal inspection. Absent: tenderness, meningismus Respiratory exam: Present: normal lung sounds bilaterally. Absent: respiratory distress, wheezes Cardiovascular Exam: Present: regular rate, normal rhythm GI/Abdominal exam: Present: soft. Absent: distended Extremities exam: Present: other (Laterally displaced and angulated fifth digit) Course Vital Signs 10/08/23 10/08/23 05:07 06:08 Temperature 98.4 F Pulse Rate 72 83 Respiratory 18 18 Rate Blood Pressure 104/57 101/72 O2 Sat by Pulse 100 100 Oximetry Procedures - Orthopedic Fracture Reduction Fracture #1 Consent Obtained: verbal consent Side: left Fracture Reduction Location: toe Analgesia: none Technique: direct manipulation Post-Reduction Neuro Exam: intact Post-Reduction Vascular Exam: intact Splint Applied: Yes Patient Tolerated Procedure: well - Orthopedic Splinting/Casting Injury #1 Side: left Lower Extremity Injury Location: toe Lower Extremity Immobilizer: fozia tape, Garrison wrap Other Orthopedic Equipment: other (Soft shoe) Medical Decision Making - Medical Decision Making Was pt. sent in by a medical professional or institution ([facility], [facility], urgent care, hospital, or group home...) When possible be specific @ -No Did you speak to anyone other than the patient for history (EMS, parent, family, police, friend...)? What history was obtained from this source @ -No Did you review nursing and triage notes (agree or disagree)? Why? @ -I reviewed and agree with nursing and triage notes Were old charts reviewed (outside hosp., previous admission, EMS record, old EKG, old radiological studies, urgent care reports/EKG's, group home records)? Report findings @ -No old charts were reviewed Differential Musculoskeletal Muscular strain, contusion, ligament sprain, fracture, arthritis, septic arthritis, bursitis, cellulitis, muscle spasm, nerve compression, DVT, arterial occlusion, herpes zoster, electrolyte abnormality, tumor.... This is not meant to be in all inclusive list EKG interpreted by me (3pts min.). @ -As above X-rays interpreted by me (1pt min.). @ -[X-ray showing displaced proximal phalanx fracture left fifth digit. CT interpreted by me (1pt min.). @ -None done U/S interpreted by me (1pt. min.). @ -None done What testing was considered but not performed or refused? (CT, X-rays, U/S, labs)? Why? @ -None What meds were considered but not given or refused? Why? @ -None Did you discuss the management of the patient with other professionals (professionals i.e. [facility], [facility], lab, RT, psych nurse, manager social, oil pumper, teacher, command center officer, case packer and sealer)? Give summary @ -No Was smoking cessation discussed for >3mins.? @ -No Was critical care preformed (if so, how long)? @ -No Were there social determinants of health that impacted care today? How? (Homelessness, low income, unemployed, alcoholism, drug addiction, transportation, low edu. Level, literacy, decrease access to med. care, assisted, rehab)? @ -No Was there de-escalation of care discussed even if they declined (Discuss DNR or withdrawal of care, Hospice)? DNR status @ -No What co-morbidities impacted this encounter? (DM, HTN, Smoking, COPD, CAD, Cancer, CVA, ARF, Chemo, Hep., AIDS, mental health diagnosis, sleep apnea, morbid obesity)? @ -None Was patient admitted / discharged? Hospital course, mention meds given and route, prescriptions, significant lab abnormalities, going to OR and other pertinent info. @ -33-year-old female with left fifth digit injury, fracture on x-ray, this is reduced with direct manipulation he had some fozia taped to the adjacent toe. Garrison wrap was applied and the patient is given instructions and follow-up with orthopedics. Undiagnosed new problem with uncertain prognosis? @ -No Drug Therapy requiring intensive monitoring for toxicity (Heparin, Nitro, Insulin, Cardizem)? @ -No Were any procedures done? @Yes, fracture reduction and splinting Diagnosis/symptom? @ -Fifth toe fracture Acute, or Chronic, or Acute on Chronic? @ -Acute Uncomplicated (without systemic symptoms) or Complicated (systemic symptoms)? @ -Default Side effects of treatment? @ -No Exacerbation, Progression, or Severe Exacerbation? @ -No Poses a threat to life or bodily function? How? (Chest pain, [place], [place], pneumonia, PE, COPD, DKA, ARF, appy, cholecystitis, CVA, Diverticulitis, Homicidal, Suicidal, threat to staff... and all critical care pts) @ -No Disposition Clinical Impression: Toe fracture, left Disposition: HOME SELF-CARE Condition: Good Instructions (If sedation given, give patient instructions): Toe Fracture (ED) Additional Instructions: Please ice and elevate the toe. Please take [id number] Tylenol Motrin for pain. Is patient prescribed a controlled substance at d/c from ED?: No Referrals: None,Stated [Primary Care Provider] - 1-2 days Valdez Green MD [STAFF PHYSICIAN] - 1-2 days Time of Disposition: 05:45
--- NOTE | 2023-10-08 05:52 | XR ---
EXAMINATION TYPE: XR toes LT DATE OF EXAM: 10/08/2023 COMPARISON: NONE HISTORY: Left fifth toe injury with pain TECHNIQUE: 3 views of the fifth toe left foot. FINDINGS: There is acute comminuted slightly displaced fracture through the fifth proximal phalanx fr om the proximal metadiaphysis through the distal metaphysis. Joint spaces are maintained. Overlying soft tissue is unremarkable. IMPRESSION: As above.
[2023-10-08 06:11] VITALS: BP 101/72; PULSE 83; RESP 18; TEMP 98.4
== END 2023-10-08 06:08 | disposition home or self-care (01) ==
LOC: EC 05:03
DX: S92.912A Unspecified fracture of left toe(s), initial encounter for closed fracture (principal); F17.200 Nicotine dependence, unspecified, uncomplicated; F12.90 Cannabis use, unspecified, uncomplicated; W22.8XXA Striking against or struck by other objects, initial encounter
CPT/HCPCS: 28515; 99283